=== PATIENT | male | born 1990 | race African-American/Black ===

== ENCOUNTER 2020-09-24 14:05 | Emergency (ER) | payer SELFPAY ==
[~2020-09-24] VITALS: Ht 182.9 cm; Wt 73.5 kg
[2020-09-24] MEDS ORDERED: BANOPHEN50 MG (14:34)
[2020-09-24] MEDS ORDERED: HALOPERIDOL5 MG (14:34)
[2020-09-24] MEDS ORDERED: NAPROSYN500 MG PO (15:21)
== END 2020-09-24 15:34 | disposition home or self-care (01) ==
LOC: FSED 14:30
DX: R10.32 Left lower quadrant pain (principal); S39.011A Strain of muscle, fascia and tendon of abdomen, initial encounter; X50.1XXA Overexertion from prolonged static or awkward postures, initial encounter; Y92.198 Other place in other specified residential institution as the place of occurrence of the external cause; F20.9 Schizophrenia, unspecified; F17.210 Nicotine dependence, cigarettes, uncomplicated
CPT/HCPCS: 99282